=== PATIENT | male | born 1950 | race Caucasian/White ===

== ENCOUNTER 2018-10-26 09:52 | Emergency (ER) | payer MEDICARE, OTHER ==
[~2018-10-26] VITALS: Ht 190.5 cm; Wt 97.7 kg
[~2018-10-26 09:52] MED LIST: HCTZ 25MG TAB25 MG PO; NAPROSYN500 MG PO
[2018-10-26 09:55] VITALS: TEMP 97.7
[2018-10-26] MEDS ORDERED: ALAVERT10 M1 PO (10:00)
[2018-10-26 10:21] LABS: BASO % 0.2 % (0.0-2.0); GRAN # 3.6 (1.4-6.5); HEMATOCRIT 48.6 % (42.0-52.0); HEMOGLOBIN 17.2 g/dl (13.5-18.0); LYMPH # 0.8 (1.2-3.4); LYMPH % 16.2 % (20.0-51.0); MEAN CELL VOLUME 88 fl (80.0-100.0); MEAN CORPUSCULAR HEMOGLOBIN 31 pg (27.0-31.0); MEAN CORPUSCULAR HGB CONC 35 g/dl (33.0-37.0); MEAN PLATELET VOLUME 9.9 fl (7.4-10.4); MONO # 0.5 (0.1-0.6); MONO % 9.4 % (1.7-9.3); PLATELET COUNT 212 K/mm3 (130-400); RED BLOOD COUNT 5.52 M/mm3 (4.20-5.60); REDCELL DISTRIBUTION WIDTH-CV 12.7 % (11.5-14.5)
[2018-10-26 10:25] LABS: ALANINE AMINOTRANSFERASE 90 U/L (21-72); ALBUMIN 4.5 gm/dL (3.5-5.0); ALKALINE PHOSPHATASE 94 U/L (50-136); ANION GAP 9 mmol/L (7-16); AST,SGOT 30 U/L (15-37); BILIRUBIN,TOTAL 0.9 mg/dL (0.0-1.0); BLOOD UREA NITROGEN 27 mg/dL (9-20); CALCIUM 9.3 mg/dL (8.4-10.2); CARBON DIOXIDE 27 mmol/L (22-30); CHLORIDE 102 mmol/L (98-107); CREATININE, serum 1.07 (0.66-1.25); GLUCOSE 115 mg/dL (74-106); POTASSIUM 3.4 mmol/L (3.4-5.0); PROTHROMBIN TIME 11.2 SECONDS (9.7-12.8); SODIUM 138 mmol/L (137-145); TOTAL PROTEIN 7.3 gm/dL (6.4-8.2)
[2018-10-26 10:39] LABS: TROPONIN-I < 0.012 ng/mL (0.000-0.035)
[2018-10-26 12:53] VITALS: BP 152/92; PULSE 76
== END 2018-10-26 13:09 | disposition home or self-care (01) ==
LOC: COL.ER 09:52
PROVIDERS: Emergency Medicine
DX: I48.91 Unspecified atrial fibrillation (principal); I48.92 Unspecified atrial flutter; I10 Essential (primary) hypertension; F17.210 Nicotine dependence, cigarettes, uncomplicated
CPT/HCPCS: J1650; J7030

== ENCOUNTER 2018-11-09 08:09 | Day surgery (SDC) | payer MEDICARE, OTHER ==
[~2018-11-09] VITALS: Ht 190.5 cm; Wt 99.0 kg
[~2018-11-09 08:09] MED LIST changes: +ALAVERT10 M1 PO
[2018-11-09] MEDS ORDERED: XARELTO20 MG PO (08:33)
[2018-11-09] MEDS ORDERED: TOPROL XL 25MG25 MG PO (08:34)
[2018-11-09 08:42] VITALS: BP 124/72; PULSE 51; TEMP 98.8
[2018-11-09] MEDS ORDERED: TAMBOCOR50 MG PO (08:58)
[2018-11-09] MEDS ORDERED: KLOR-CON M2020 MEQ PO (09:00)
--- NOTE | 2018-11-09 09:45 | NUR ---
TAMRA/CV cancelled per Dr. Dumont. Pt discharged per ambulation.
== END 2018-11-09 10:06 | disposition home or self-care (01) ==
LOC: COL.CAR 08:09
DX: R06.02 Shortness of breath (principal); I10 Essential (primary) hypertension; I48.92 Unspecified atrial flutter; Z82.49 Family history of ischemic heart disease and other diseases of the circulatory system; Z87.891 Personal history of nicotine dependence; Z53.8 Procedure and treatment not carried out for other reasons
CPT/HCPCS: J2250; J2704; J3010

== ENCOUNTER 2019-07-31 07:26 | Day surgery (SDC) | payer MEDICARE, OTHER ==
[~2019-07-31] VITALS: Ht 190.7 cm; Wt 106.2 kg
[2019-07-31] VITALS (7 sets, daily range): BP systolic 99–126; BP diastolic 71–96; PULSE 52–78; TEMP 97.6
[~2019-07-31 07:26] MED LIST changes: +KLOR-CON M2020 MEQ PO; +TAMBOCOR50 MG PO; +TOPROL XL 25MG25 MG PO; +XARELTO20 MG PO
[2019-07-31] MEDS ORDERED: TAMBOCOR 1100 MG/TAB PO (08:30)
[2019-07-31] MEDS ORDERED: LOPRESSOR 225 MG/TAB PO (08:32)
[2019-07-31] MEDS ORDERED: ELIQUIS 5MG PO (08:33)
[2019-07-31] MEDS ORDERED: PRILOSEC 20MG20 MG PO (08:33)
[2019-07-31 08:35] LABS: HEMATOCRIT 44.7 % (42.0-52.0); HEMOGLOBIN 15.8 g/dl (13.5-18.0); MEAN CELL VOLUME 90 fl (80.0-100.0); MEAN CORPUSCULAR HEMOGLOBIN 32 pg (27.0-31.0); MEAN CORPUSCULAR HGB CONC 35 g/dl (33.0-37.0); MEAN PLATELET VOLUME 10.7 fl (7.4-10.4); PLATELET COUNT 168 K/mm3 (130-400); RED BLOOD COUNT 4.97 M/mm3 (4.20-5.60); REDCELL DISTRIBUTION WIDTH-CV 12.8 % (11.5-14.5)
[2019-07-31 08:37] LABS: INR 1.1 (0.8-3.0); PROTHROMBIN TIME 12.5 SECONDS (9.7-12.8)
[2019-07-31 08:39] LABS: PARTIAL THROMBOPLASTIN TIME 33.4 SECONDS (26.0-37.0)
[2019-07-31 08:46] LABS: CALCIUM 9.3 mg/dL (8.4-10.2); CREATININE, serum 1.01 (0.66-1.25); MAGNESIUM 2.1 mg/dL (1.6-2.3); POTASSIUM 3.6 mmol/L (3.4-5.0)
[2019-07-31 09:16] LABS: THYROID STIMULATING HORMONE 1.25 uIU/mL (0.465-4.680)
--- NOTE | 2019-07-31 11:10 | NUR ---
Discharge instructions given to pt.Pt verbalizes understanding.INT removed,catheter tip intact.Pt escorted out via wheelchair by this nurse.
== END 2019-07-31 12:35 | disposition home or self-care (01) ==
LOC: COL.CAR 07:26
PROVIDERS: Internal Medicine Cardiovascular Disease
DX: I48.91 Unspecified atrial fibrillation (principal); I48.92 Unspecified atrial flutter; I10 Essential (primary) hypertension; Z79.01 Long term (current) use of anticoagulants; Z79.899 Other long term (current) drug therapy; Z87.891 Personal history of nicotine dependence
CPT/HCPCS: J2704; J7030

== ENCOUNTER 2019-09-04 09:19 | Day surgery (SDC) | payer MEDICARE, OTHER ==
[~2019-09-04] VITALS: Ht 190.5 cm; Wt 105.2 kg
[~2019-09-04 09:19] MED LIST changes: +ELIQUIS 5MG PO; +LOPRESSOR 225 MG/TAB PO; +PRILOSEC 20MG20 MG PO; +TAMBOCOR 1100 MG/TAB PO
[2019-09-04 09:49] LABS: HEMATOCRIT 47.4 % (42.0-52.0); HEMOGLOBIN 16.7 g/dl (13.5-18.0); MEAN CELL VOLUME 89 fl (80.0-100.0); MEAN CORPUSCULAR HEMOGLOBIN 31 pg (27.0-31.0); MEAN CORPUSCULAR HGB CONC 35 g/dl (33.0-37.0); MEAN PLATELET VOLUME 10.3 fl (7.4-10.4); PLATELET COUNT 181 K/mm3 (130-400); RED BLOOD COUNT 5.32 M/mm3 (4.20-5.60); REDCELL DISTRIBUTION WIDTH-CV 12.6 % (11.5-14.5)
[2019-09-04 09:52] VITALS: BP 105/79; PULSE 125; TEMP 98.5
[2019-09-04 09:58] LABS: PROTHROMBIN TIME 11.3 SECONDS (9.7-12.8)
[2019-09-04 10:00] LABS: PARTIAL THROMBOPLASTIN TIME 32.8 SECONDS (26.0-37.0)
[2019-09-04 10:12] LABS: CALCIUM 9.1 mg/dL (8.4-10.2); CREATININE, serum 0.91 (0.66-1.25); MAGNESIUM 2.2 mg/dL (1.6-2.3); POTASSIUM 3.7 mmol/L (3.4-5.0)
[2019-09-04 10:43] LABS: THYROID STIMULATING HORMONE 0.896 uIU/mL (0.465-4.680)
--- NOTE | 2019-09-04 10:48 | NUR ---
Report recieved from CATHERINE Wolff
[2019-09-04 10:50] VITALS: BP 105/63; PULSE 75; TEMP 98.6
== END 2019-09-04 11:42 | disposition home or self-care (01) ==
LOC: COL.CAR 09:19
PROVIDERS: Internal Medicine Cardiovascular Disease
DX: I48.92 Unspecified atrial flutter (principal); I48.91 Unspecified atrial fibrillation; I10 Essential (primary) hypertension; Z79.01 Long term (current) use of anticoagulants; Z87.891 Personal history of nicotine dependence; G43.909 Migraine, unspecified, not intractable, without status migrainosus; J30.2 Other seasonal allergic rhinitis; Z20.828 Contact with and (suspected) exposure to other viral communicable diseases
CPT/HCPCS: J2704

== ENCOUNTER → 2019-10-23 | Outpatient (CLI) | payer MEDICARE, OTHER | LOC: ZCOL.LAB 16:17 | DX: L02.212 Cutaneous abscess of back [any part, except buttock and flank] (principal) ==